=== PATIENT | female | born 1980 | race Caucasian/White ===

== ENCOUNTER 2017-01-31 11:59 | Emergency (ER) | payer OTHER ==
[2017-01-31 12:07] VITALS: BP 145/80; PULSE 81; RESP 16; TEMP 97.9; O2SAT 97
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
== END 2017-01-31 12:51 | disposition home or self-care (01) ==
DX: G43.409 Hemiplegic migraine, not intractable, without status migrainosus (principal); Z87.891 Personal history of nicotine dependence

== ENCOUNTER → 2017-03-21 | Outpatient (CLI) | payer OTHER | LOC: BMCIMAGING 12:07 | PROVIDERS: ATTEND Family Medicine | DX: J40 Bronchitis, not specified as acute or chronic (principal) ==